=== PATIENT | male | born 2000 | race Two or more races ===

== ENCOUNTER 2022-05-15 07:56 | Emergency (ER) | payer SELFPAY ==
[~2022-05-15] VITALS: Ht 172.7 cm; Wt 76.0 kg
[2022-05-15 07:59] VITALS: BP 132/75
== END 2022-05-15 09:02 | disposition home or self-care (01) ==
LOC: ER 08:09
DX: R41.82 Altered mental status, unspecified (principal); Z76.5 Malingerer [conscious simulation]
CPT/HCPCS: 93005; 99283